=== PATIENT | male | born 1960 | race Hispanic/Latino ===

== ENCOUNTER 2018-10-05 06:12 | Emergency (ER) | payer OTHER ==
[2018-10-05 06:28] VITALS: RESP 20
[2018-10-05] MEDS ORDERED: Sodium Chloride 0.9% 1,000 ML IV ONE (07:33)
[2018-10-05 07:40] LABS: BASO # 0.1 K/uL (0.0-0.2); BASO % 0.7 % (0.0-2.0); EOS # 0.3 K/uL (0.0-0.7); EOS % 2.3 % (0.0-4.0); HEMOGLOBIN 14.2 g/dL (12.0-18.0); LYMPH # 2.2 K/uL (1.0-4.3); LYMPH % 16.8 % (20.0-40.0); MEAN CORPUSCULAR HEMOGLOBIN 27.4 pg (27.0-31.0); MEAN PLATELET VOLUME 8.5 fL (7.2-11.7); MONO % 7.6 % (0.0-10.0); NEUT # 9.3 K/uL (1.8-7.0); NEUT % 72.6 % (50.0-75.0); RBC 5.18 Mil/uL (4.40-5.90); RED CELL DISTRIBUTION WIDTH 13.8 % (11.5-14.5); WHITE BLOOD COUNT 12.8 K/uL (4.8-10.8)
[2018-10-05 07:49] LABS: URINE BACTERIA RARE (<OCC); URINE BILIRUBIN NEGATIVE (NEGATIVE); URINE BLOOD NEGATIVE (NEGATIVE); URINE CLARITY Clear (Clear); URINE COLOR Yellow (YELLOW); URINE GLUCOSE (UA) NORMAL (Normal); URINE LEUKOCYTE ESTERASE NEG Leu/uL (Negative); URINE PROTEIN NEGATIVE (NEGATIVE); URINE UROBILINOGEN NORMAL mg/dL (0.2-1.0)
[2018-10-05] MEDS ORDERED: Sodium Chloride 0.9% 1,000 ML ONE (07:51)
--- NOTE | 2018-10-05 08:06 | C.PDOC ---
History Of Present Illness 57 y/o male presents to the ED complaining of a 3 week history of body aches, left groin pain, and hot and cold flashes. No associated abdominal pain. Patient admits to dry, nonproductive cough but no chest pain. No fever or chills. Patient states he is mostly concerned due to his lymph nodes in the left groin bothering him. He was given doxycycline from an urgent care clinic, but reports no improvement after 4 days of the antibiotic. No recent travel. Patient denies being sexually active. No penile discharge, no testicular tenderness, no gross abscess. Time Seen by Provider: 10/05/18 07:11 Chief Complaint (Nursing): Groin Pain History Per: Patient History/Exam Limitations: no limitations Onset/Duration Of Symptoms: Persistent (x 3 weeks) Current Symptoms Are (Timing): Still Present Quality Of Discomfort: Other (Palpable nodes to groin region) Alleviating Factors: None Past Medical History Reviewed: Historical Data, Nursing Documentation, Vital Signs Vital Signs: Last Vital Signs Temp 97.6 F 10/05/18 06:19 Pulse 68 10/05/18 06:19 Resp 20 10/05/18 06:19 BP 161/80 H 10/05/18 06:19 Pulse Ox 97 10/05/18 06:19 - Medical History PMH: No Chronic Diseases Surgical History: Cholecystectomy Family History: States: Unknown Family Hx - Social History Hx Tobacco Use: No Hx Alcohol Use: No Hx Substance Use: No - Immunization History Hx Tetanus Toxoid Vaccination: No Hx Influenza Vaccination: Yes Hx Pneumococcal Vaccination: No Review Of Systems Except As Marked, All Systems Reviewed And Found Negative. Constitutional: Positive for: Chills, Sweats, Other (Generalized body aches). Negative for: Fever Eyes: Negative for: Vision Change ENT: Negative for: Nose Discharge, Nose Congestion Cardiovascular: Negative for: Chest Pain, Light Headedness Respiratory: Positive for: Cough. Negative for: Shortness of Breath, Sputum, Wheezing Gastrointestinal: Negative for: Abdominal Pain Genitourinary: Positive for: Other (Groin pain, palpable nodes to left groin). Negative for: Dysuria, Hematuria Musculoskeletal: Negative for: Back Pain Skin: Negative for: Rash Neurological: Negative for: Headache, Dizziness Physical Exam - Physical Exam Appears: Non-toxic, No Acute Distress, Other (Afebrile) Skin: Warm, Dry, No Rash Head: Atraumatic, Normacephalic Eye(s): bilateral: Normal Inspection, PERRL, EOMI Oral Mucosa: Moist Neck: Normal ROM Chest: Symmetrical Cardiovascular: Rhythm Regular, No Murmur Respiratory: Normal Breath Sounds, No Rales, No Rhonchi, No Wheezing Gastrointestinal/Abdominal: Soft, No Tenderness, No Distention, No Guarding Male Genital: Inguinal Tenderness (Two large lymph nodes palpable at the left inguinal region, +TTP, no focal lesions), Other (No penile discharge; Both testes are descended) Extremity: Bilateral: Atraumatic, No Pedal Edema, Normal ROM (x 4) Pulses: Left Dorsalis Pedis: Normal, Right Dorsalis Pedis: Normal Neurological/Psych: Oriented x3, Normal Cranial Nerves Gait: Steady ED Course And Treatment - Laboratory Results Result Diagrams: 10/05/18 07:33 10/05/18 07:33 Lab Results: Urine Color Yellow (YELLOW) 10/05/18 07:36 Urine Clarity Clear (Clear) 10/05/18 07:36 Urine pH 6.0 (5.0-8.0) 10/05/18 07:36 Ur Specific [place] 1.008 (1.003-1.030) 10/05/18 07:36 Urine Protein Negative mg/dL (NEGATIVE) 10/05/18 07:36 Urine Glucose (UA) Normal mg/dL (Normal) 10/05/18 07:36 Urine Ketones Negative mg/dL (NEGATIVE) 10/05/18 07:36 Urine Blood Negative (NEGATIVE) 10/05/18 07:36 Urine Nitrate Negative (NEGATIVE) 10/05/18 07:36 Urine Bilirubin Negative (NEGATIVE) 10/05/18 07:36 Urine Urobilinogen Normal mg/dL (0.2-1.0) 10/05/18 07:36 Ur Leukocyte Esterase Neg Zackary/uL (Negative) 10/05/18 07:36 Urine WBC (Auto) 1 /hpf (0-5) 10/05/18 07:36 Urine RBC (Auto) 1 /hpf (0-3) 10/05/18 07:36 Urine Bacteria Rare (<OCC) 10/05/18 07:36 O2 Sat by Pulse Oximetry: 97 (RA) Pulse Ox Interpretation: Normal Medical Decision Making Medical Decision Making: Impression: Weakness, Enlarged lymph nodes Initial Plan: - CMP - Lipase - CBC - Urinalysis - Urine culture - Chlamydia/GC swab - Woods serology - Chest x-ray - NS IV fluids, 1 L - 30 mg IV Toradol - Infectious Disease consult pending 7:33am Paged ID on-call, Dr. Arreola. 7:55am Received call back from Dr. Arreola, who advises adding on RPR and LDH. Patient reports he has a PMD and does not wish to stay in the hospital. States he will make a follow up appointment in 1-2 days. 0856 am - Discussed with Dr. Arreola and suggest adding levaquin to regimen. Disposition Discussed With Dr.: Jacklyn Arreola Counseled Patient/Family Regarding: Studies Performed, Diagnosis, Need For Followup, Rx Given - Disposition Disposition: HOME/ ROUTINE Disposition Time: 08:54 Condition: STABLE Additional Instructions: follow up with your doctor within 2 days call to make an appointment take medication as prescribed return to ER if symptoms worsens or progress you were offered admission but would like to follow up as outpatient Prescriptions: Levofloxacin [Levaquin] 500 mg PO DAILY #10 tablet Instructions: Lymphadenitis (DC) Forms: [facility] (Turkmen), General Discharge Instructions - Clinical Impression Clinical Impression: Lymphadenitis - Scribe Statement The provider has reviewed the documentation as recorded by the Glenn Caban Provider Attestation: All medical record entries made by the Glenn were at my direction and personal ly dictated by me. I have reviewed the chart and agree that the record accurately reflects my personal performance of the history, physical exam, medical decision making, and the department course for this patient. I have also personally directed, reviewed, and agree with the discharge instructions and disposition.
[2018-10-05 08:23] LABS: ALB/GLOB RATIO 1.3 (1.0-2.1); ALT/SGPT 55 U/L (21-72); AST/SGOT 43 U/L (17-59); BLOOD UREA NITROGEN 11 mg/dL (9-20); CALCIUM 9.2 mg/dl (8.6-10.4); GFR NON-AFRICAN AMERICAN > 60; LIPASE 31 U/L (23-300)
--- NOTE | 2018-10-05 08:26 | RAD ---
Date of service: 10/05/2018 HISTORY: Cough COMPARISON: 03/02/2014 TECHNIQUE: Chest PA and lateral FINDINGS: LINES AND TUBES: None. LUNG AND PLEURA: The lungs are well inflated and clear. No pleural effusion or pneumothorax. HEART AND MEDIASTINUM: The heart is not enlarged. No aortic atherosclerotic calcifications present. The hilar and mediastinal contours are within normal limits. SKELETAL STRUCTURES: The bony structures are within normal limits for the patient's age. VISUALIZED UPPER ABDOMEN: Normal. OTHER FINDINGS: None. IMPRESSION: No active pulmonary disease.
[2018-10-05 09:24] VITALS: BP 121/63; PULSE 75; TEMP 98.1
[2018-10-05 09:52] VITALS: O2SAT 97
== END 2018-10-05 09:35 | disposition home or self-care (01) ==
LOC: C.ER 06:12
DX: I88.9 Nonspecific lymphadenitis, unspecified (principal)
CPT/HCPCS: 71046; 80053; 81001; 83615; 83690; 85025; 86308; 86592; 87086; 87491; 87591; 96361; 96365; 96375; 99285; J0696; J1885; J7030

== ENCOUNTER 2018-10-10 11:25 | Outpatient (CLI) | payer OTHER | END 2018-10-10 11:26 | disposition home or self-care (01) | LOC: C.CTH 11:25 | DX: R59.0 Localized enlarged lymph nodes (principal) ==

== ENCOUNTER 2018-12-09 16:40 | Emergency (ER) | payer OTHER ==
[2018-12-09 17:47] LABS: BASO # 0.1 K/uL (0.0-0.2); BASO % 0.5 % (0.0-2.0); EOS # 0.3 K/uL (0.0-0.7); EOS % 2.3 % (0.0-4.0); HEMOGLOBIN 14.5 g/dL (12.0-18.0); LYMPH # 1.6 K/uL (1.0-4.3); LYMPH % 12.3 % (20.0-40.0); MEAN CELL VOLUME 82.2 fL (80.0-94.0); MEAN CORPUSCULAR HEMOGLOBIN 26.5 pg (27.0-31.0); MEAN CORPUSCULAR HGB CONC 32.3 g/dL (33.0-37.0); MEAN PLATELET VOLUME 9.2 fL (7.2-11.7); MONO # 0.9 K/uL (0.0-0.8); MONO % 6.5 % (0.0-10.0); NEUT # 10.3 K/uL (1.8-7.0); NEUT % 78.4 % (50.0-75.0); RBC 5.47 Mil/uL (4.40-5.90); RED CELL DISTRIBUTION WIDTH 15.9 % (11.5-14.5); WHITE BLOOD COUNT 13.2 K/uL (4.8-10.8)
[2018-12-09 17:53] LABS: PROTHROMBIN TIME 11.1 SECONDS (9.7-12.2)
[2018-12-09 17:57] LABS: ALB/GLOB RATIO 1.6 (1.0-2.1); ALBUMIN 4.3 g/dL (3.5-5.0); ALT/SGPT 92 U/L (21-72); AST/SGOT 51 U/L (17-59); BLOOD UREA NITROGEN 11 mg/dL (9-20); CALCIUM 9.6 mg/dl (8.6-10.4); GFR NON-AFRICAN AMERICAN > 60
[2018-12-09 18:11] LABS: URINE BILIRUBIN NEGATIVE (NEGATIVE); URINE BLOOD NEGATIVE (NEGATIVE); URINE CLARITY Clear (Clear); URINE COLOR Yellow (YELLOW); URINE GLUCOSE (UA) NORMAL (Normal); URINE LEUKOCYTE ESTERASE NEG Leu/uL (Negative); URINE PROTEIN NEGATIVE (NEGATIVE); URINE UROBILINOGEN NORMAL mg/dL (0.2-1.0)
[2018-12-09] MEDS ORDERED: Vancomycin 1 GM 1 GM/250 ML BAG IV STA (18:13)
[2018-12-09] MEDS ORDERED: Vancomycin 1 GM 1 GM/250 ML BAG IVPB ONE (18:51)
--- NOTE | 2018-12-09 19:04 | C.PDOC ---
History Of Present Illness Patient c/o 3 days h/o left leg. Patient recently was d/c with nonhodgkins lymphoma and 2 weeks ago got his first chemo treatment. Time Seen by Provider: 12/09/18 16:51 Chief Complaint (Nursing): Lower Extremity Problem/Injury History Per: Patient History/Exam Limitations: no limitations Onset/Duration Of Symptoms: Days (3) Current Symptoms Are (Timing): Still Present Severity: Moderate Pain Scale Rating Of: 6 Additional History Per: Patient Past Medical History Reviewed: Historical Data, Nursing Documentation, Vital Signs Vital Signs: Last Vital Signs Temp 98.1 F 12/09/18 16:43 Pulse 86 12/09/18 16:43 Resp 18 12/09/18 16:43 BP 143/83 12/09/18 16:43 Pulse Ox 100 12/09/18 16:43 Primary Care Provider: Kayleigh Robledo - Medical History Other PMH: non-hodgkins lymphoma Surgical History: Cholecystectomy (mid s) Family History: States: Unknown Family Hx - Social History Hx Tobacco Use: No Hx Alcohol Use: No Hx Substance Use: No - Immunization History Hx Tetanus Toxoid Vaccination: No Hx Influenza Vaccination: No Hx Pneumococcal Vaccination: No Review Of Systems Except As Marked, All Systems Reviewed And Found Negative. Physical Exam - Physical Exam Appears: Well, Non-toxic, No Acute Distress Skin: Other (left lower leg with erythema, swelling, tenderness and warmth) Head: Atraumatic, Normacephalic Eye(s): bilateral: Normal Inspection Neck: Normal ROM Cardiovascular: Rhythm Regular Respiratory: Normal Breath Sounds Gastrointestinal/Abdominal: Normal Exam, Soft Extremity: Tenderness (left lower leg), Swelling (left lower leg) Neurological/Psych: Oriented x3, Normal Speech, Normal Cognition ED Course And Treatment - Laboratory Results Result Diagrams: 12/09/18 17:39 12/09/18 17:39 Lab Results: PT 11.1 SECONDS (9.7-12.2) 12/09/18 17:39 INR 1.0 12/09/18 17:39 APTT 35.0 SECONDS (21-34) H 12/09/18 17:39 Total Bilirubin 0.5 mg/dL (0.2-1.3) 12/09/18 17:39 AST 51 U/L (17-59) 12/09/18 17:39 ALT 92 U/L (21-72) H D 12/09/18 17:39 Alkaline Phosphatase 231 U/L (38-126) H 12/09/18 17:39 Total Protein 6.9 g/dL (6.3-8.3) 12/09/18 17:39 Albumin 4.3 g/dL (3.5-5.0) 12/09/18 17:39 Globulin 2.7 gm/dL (2.2-3.9) 12/09/18 17:39 Albumin/Globulin Ratio 1.6 (1.0-2.1) 12/09/18 17:39 Urine Color Yellow (YELLOW) 12/09/18 18:06 Urine Clarity Clear (Clear) 12/09/18 18:06 Urine pH 6.0 (5.0-8.0) 12/09/18 18:06 Ur Specific [place] 1.014 (1.003-1.030) 12/09/18 18:06 Urine Protein Negative mg/dL (NEGATIVE) 12/09/18 18:06 Urine Glucose (UA) Normal mg/dL (Normal) 12/09/18 18:06 Urine Ketones Negative mg/dL (NEGATIVE) 12/09/18 18:06 Urine Blood Negative (NEGATIVE) 12/09/18 18:06 Urine Nitrate Negative (NEGATIVE) 12/09/18 18:06 Urine Bilirubin Negative (NEGATIVE) 12/09/18 18:06 Urine Urobilinogen Normal mg/dL (0.2-1.0) 12/09/18 18:06 Ur Leukocyte Esterase Neg Zackary/uL (Negative) 12/09/18 18:06 Urine WBC (Auto) 1 /hpf (0-5) 12/09/18 18:06 Urine RBC (Auto) < 1 /hpf (0-3) 12/09/18 18:06 O2 Sat by Pulse Oximetry: 100 Progress Note: LE duplex neg for DVT. Patient has elevated WBCs, s/s consistant with LE cellulitis. Vancomycin IV started. Case was d/wl pt's PMD to admit patient for IV antibiotics. Disposition - Disposition Disposition: HOSPITALIZED Disposition Time: 19:07 Condition: FAIR - Clinical Impression Clinical Impression: Cellulitis Decision To Admit - Pt Status Changed To: Hospital Disposition Of: Inpatient - Admit Certification Admit to Inpatient:: After my assessment, the patient will require hospitalization for at least two midnights. This is because of the severity of symptoms shown, intensity of services needed, and/or the medical risk in this patient being treated as an outpatient. - InPatient: Physician Admission Certification: I certify that this patient requires 2 or more midnights of care for the following reason:: Patient on Chemo with LE cellulitis will need more than 2 days of IV antibiotics. - . Bed Request Type: Regular Admitting Physician: Kayleigh Robledo Patient Diagnosis: Cellulitis
[2018-12-09 22:00] VITALS: BP 159/85; PULSE 73; RESP 19; TEMP 97.8; O2SAT 100
--- NOTE | 2018-12-09 22:07 | CP.PCM.PCO ---
Physician Communication Note - Physician Communication Note Physician Communication Note: Patient explained risks of leaving, understood and signed AMA
--- NOTE | 2018-12-10 09:04 | RAD ---
Chest x-ray single frontal view HISTORY: Lower extremity pain and swelling. COMPARISON: 10/05/2018 Findings: Right central venous catheter tip extending into the distal right SVC. Mild venous congestion. Left hilar prominence. Cardiomegaly. Degenerative changes in the spine. Impression: Right central venous catheter tip extending into the distal right SVC. Mild venous congestion. Left hilar prominence. Cardiomegaly.
--- NOTE | 2018-12-10 12:11 | VASCLAB ---
Date of service: 12/09/2018 PROCEDURE: Left Lower Extremity Venous Duplex Exam. HISTORY: LLE edema/pain/erythema h/o lymphoma PRIORS: None. TECHNIQUE: Left common femoral, femoral, popliteal and posterior tibial, peroneal and great saphenous veins were evaluated. Flow was assessed with color Doppler, compressibility, assessment of phasic flow and augmentation response. Report prepared by DARREN Reed FINDINGS: LEFT: 1. Common Femoral Vein: 1.1. Compressibility - Fully compressible: Thrombus - None : Flow - Phasic: Augmentation -Normal: Reflux - None. 2. Femoral Vein: (proximal-mid) 2.1. Compressibility - Fully compressible: Thrombus - None: Flow - Phasic: Augmentation -Normal: Reflux - None. 3. Popliteal Vein: 3.1. Compressibility - Fully compressible: Thrombus - None: Flow - Phasic: Augmentation -Normal: Reflux - None. 4. Posterior Tibial Vein: (Distal view only) 4.1. Compressibility - Fully compressible: Thrombus - None: Flow - Phasic: Augmentation -Normal: Reflux - None. 5. Peroneal Vein: 5.1. Not visualized due to swelling. 6. Great Saphenous Vein: 6.1. Compressibility - Fully compressible: Thrombus - None: Flow - Phasic: Augmentation - Normal: Reflux - None. OTHER FINDINGS: Normal venous flow noted in the RIGHT common femoral vein. IMPRESSION: No evidence of deep or superficial vein thrombosis of the left lower extremity, as visualized. Normal valve function noted of the left side. Limited imaging due to severe swelling and multiple enlarged lymph nodes in the left groin.
== END 2018-12-09 22:32 | disposition left against medical advice (07) ==
LOC: C.ER 16:40 → UNDOADMIN 19:11 → C.9E 19:11 → UNDODISIN 22:03 → C.9E 23:00 → C.5S 23:00
DX: L03.116 Cellulitis of left lower limb (principal); Z85.72 Personal history of non-Hodgkin lymphomas
CPT/HCPCS: 71045; 80053; 81001; 85025; 85610; 85730; 87040; 93971; 96374; 99285; J3370